=== PATIENT | male | born 1995 | race Hispanic/Latino ===

== ENCOUNTER 2017-11-19 07:35 | Emergency (ER) | payer OTHER ==
[2017-11-19 07:41] VITALS: BMI 23.6
[2017-11-19] MEDS ORDERED: Sodium Chloride 0.9% 1,000 ML IV STA (09:17)
[2017-11-19 09:54] LABS: BASO % 0.5 % (0.0-2.0); EOS # 0.2 K/uL (0.0-0.7); EOS % 3.1 % (0.0-4.0); HEMOGLOBIN 15.1 g/dL (12.0-18.0); LYMPH # 1.5 K/uL (1.0-4.3); LYMPH % 18.7 % (20.0-40.0); MEAN CELL VOLUME 81.7 fl (80.0-94.0); MEAN CORPUSCULAR HEMOGLOBIN 27.6 pg (27.0-31.0); MEAN CORPUSCULAR HGB CONC 33.8 g/dL (33.0-37.0); MEAN PLATELET VOLUME 8.5 fl (7.2-11.7); MONO # 0.8 K/uL (0.0-0.8); NEUT # 5.3 K/uL (1.8-7.0); NEUT % 67.7 % (50.0-75.0); NRBC % 0.1 % (0.0-0.0); RBC 5.48 Mil/uL (4.40-5.90); RED CELL DISTRIBUTION WIDTH 13.1 % (11.5-14.5); WHITE BLOOD COUNT 7.9 K/uL (4.8-10.8)
[2017-11-19 10:06] LABS: ALB/GLOB RATIO 1.4 (1.0-2.1); ALBUMIN 4.4 g/dL (3.5-5.0); ALT/SGPT 39 U/L (21-72); AST/SGOT 31 U/L (17-59); BLOOD UREA NITROGEN 16 mg/dl (9-20); CALCIUM 9.7 mg/dL (8.4-10.2); GFR AFRICAN-AMERICAN > 60; GFR NON-AFRICAN AMERICAN > 60; LIPASE 41 U/L (23-300)
--- NOTE | 2017-11-19 11:00 | ED PDOC ---
HPI: Abdomen Time Seen by Provider: 11/19/17 09:08 Chief Complaint (Nursing): Abdominal Pain Chief Complaint (Provider): Abdominal Pain History Per: Patient History/Exam Limitations: no limitations Onset/Duration Of Symptoms: Days (x 1), Intermittent Episodes Additional Complaint(s): 22 year old male presents to the ED c/o epigastric pain in intermittent episodes , onset yesterday. Pain is non radiating nor related to food. Reports it comes and goes for a few minutes at a time. Intermittent nausea occurs as a result of the pain. Denies vomiting, diarrhea, fever and chest pain. PMD: Dr. Waddell Past Medical History Reviewed: Historical Data, Nursing Documentation, Vital Signs Vital Signs: Last Vital Signs Temp 98.3 F 11/19/17 15:17 Pulse 61 11/19/17 15:17 Resp 18 11/19/17 15:17 BP 110/51 L 11/19/17 15:17 Pulse Ox 100 11/19/17 15:33 - Medical History PMH: No Chronic Diseases - Surgical History Surgical History: No Surg Hx - Family History Family History: States: No Known Family Hx - Social History Current smoker - smoking cessation education provided: No Alcohol: Occasional Drugs: Denies - Home Medications Home Medications: Ambulatory Orders Medication Instructions Recorded Esomeprazole Magnesium [Nexium] 20 mg PO DAILY #30 capsule. 11/19/17 Famotidine [Pepcid] 20 mg PO DAILY #14 tab 11/19/17 - Allergies Allergies/Adverse Reactions: Allergies Allergy/AdvReac Type Severity Reaction Status Date / Time No Known Allergies Allergy Verified 11/19/17 09:18 Review of Systems ROS Statement: Except As Marked, All Systems Reviewed And Found Negative (as per HPI otherwise negative) Constitutional: Negative for: Fever Cardiovascular: Negative for: Chest Pain Gastrointestinal: Positive for: Nausea (intermittent), Abdominal Pain ( intermittent). Negative for: Vomiting, Diarrhea Physical Exam - Reviewed Nursing Documentation Reviewed: Yes Vital Signs Reviewed: Yes - Physical Exam Appears: Positive for: Non-toxic, No Acute Distress Head Exam: Positive for: ATRAUMATIC, NORMOCEPHALIC Skin: Positive for: Normal Color, Warm, Dry Eye Exam: Positive for: EOMI, Normal appearance, PERRL Neck: Positive for: Normal, Painless ROM, Supple Cardiovascular/Chest: Positive for: Regular Rate, Rhythm Respiratory: Positive for: CNT, Normal Breath Sounds Gastrointestinal/Abdominal: Positive for: Soft, Tenderness (mild epigastric) Neurologic/Psych: Positive for: Alert, Oriented - Laboratory Results Result Diagrams: 11/19/17 09:35 11/19/17 09:35 - ECG O2 Sat by Pulse Oximetry: 100 (RA) Pulse Ox Interpretation: Normal - Progress Re-evaluation Time: 15:35 Condition: Re-examined, Improved Medical Decision Making Medical Decision Making: Time: 09:16 Impression: abdominal pain Differential diagnoses included but are not limited to gallbladder diseases, pancreatitis, gastritis. Other diagnoses considered by not listed. Initial Plan: --CMP --Lipase --CBC --Normal saline IV 1,000 mls/hr --Pepcid 20 mg IVP --Bentyl 10 mg PO --Abdomen US --Abdomen Pelvis CT Abdomen US FINDINGS: LIVER: The liver measures approximately 14.3 cm in length. Normal echogenicity of the liver parenchyma. No obvious masses or collections seen on images presented. . No intrahepatic bile duct dilatation. No evidence of abdominal ascites. GALLBLADDER: Gallbladder is physiologically distended. No evidence of intraluminal gallbladder calculi. No pericholecystic fluid collections or sonographic Coreas sign. COMMON BILE DUCT: CBD measures approximately 2.6 mm. No stones. No dilatation. PANCREAS: Unremarkable as visualized. No mass. No ductal dilatation. RIGHT KIDNEY: Right kidney measures approximately 11.1 x 6.0 x 4.4 cm in length. Normal echogenicity. No calculus, mass, or hydronephrosis. AORTA: No aneurysmal dilatation. IVC: Unremarkable. OTHER FINDINGS: None . IMPRESSION: Unremarkable limited right upper quadrant ultrasound. Time: 15:[address] FINDINGS: LOWER THORAX: Unremarkable. LIVER: Mildly diminished attenuation throughout the liver suggesting hepatic steatosis without focal mass or biliary tree dilatation appreciated in the liver. GALLBLADDER AND BILE DUCTS: Unremarkable. PANCREAS: Unremarkable. No gross lesion or ductal dilatation. SPLEEN: Unremarkable. ADRENALS: Unremarkable. No mass. KIDNEYS AND URETERS: Unremarkable. No hydronephrosis. No solid mass. VASCULATURE: Unremarkable. No aortic aneurysm. BOWEL: The stomach is collapsed without oral contrast present. Limited on gas is seen retained within the mid fundus. Thickening of the wall of the cardiac portion is difficult to exclude and therefore etiologies such is gastritis or even a mural lesion would be very difficult to exclude. Small and large bowel loops appear normal in overall caliber with no obstructive pattern appreciated. Limited retained fecal material seen throughout various large-bowel segments, predominantly distal large bowel. APPENDIX: Normal appendix. PERITONEUM: Unremarkable. No free fluid. No free air. LYMPH NODES: Unremarkable. No enlarged lymph nodes. BLADDER: A distended but thin/smooth walled urinary bladder is identified. REPRODUCTIVE: Unremarkable. BONES: No acute fracture. OTHER FINDINGS: None. IMPRESSION: The stomach is collapsed and thickening of the cardiac santiago is difficult to exclude and therefore gastritis or even an underlying mural lesion is not excluded. No definite additional potential acute findings in this abdomen and pelvis CT examination the lack of oral contrast limits interpretation somewhat. Hepatic steatosis. Scribe Attestation: Documented by Zhane Abel, acting as a scribe for Pilar Gambino MD Provider Scribe Attestation: All medical record entries made by the Scribe were at my direction and personally dictated by me. I have reviewed the chart and agree that the record accurately reflects my personal performance of the history, physical exam, medical decision making, and the department course for this patient. I have also personally directed, reviewed, and agree with the discharge instructions and disposition. Disposition - Clinical Impression Clinical Impression: Abdominal pain - Patient ED Disposition Is Patient to be Admitted: No Doctor Will See Patient In The: Office Counseled Patient/Family Regarding: Studies Performed, Diagnosis, Need For Followup - Disposition Referrals: [facility] [Outside] Jesus HUDSON,MD Miguel [Medical Doctor] - Disposition: Routine/Home Disposition Time: 15:35 Condition: GOOD Additional Instructions: Return for worsening. Follow up with your PCP in 2-3 days. Prescriptions: Esomeprazole Magnesium [Nexium] 20 mg PO DAILY #30 capsule. Famotidine [Pepcid] 20 mg PO DAILY #14 tab Instructions: Gastritis (ED)
[2017-11-19] MEDS ORDERED: Iohexol 300 100 ML IJ ONE (14:08)
[2017-11-19] MEDS ORDERED: Sodium Chloride 0.9% 50 ML IV ONE (14:08)
[2017-11-19 15:18] VITALS: BP 110/51; PULSE 61; RESP 18; TEMP 98.3
--- NOTE | 2017-11-19 15:18 | CT ---
PROCEDURE: CT Abdomen and Pelvis with contrast HISTORY: epigastric pain COMPARISON: Limited abdomen ultrasound exam 11/19/2017. TECHNIQUE: Following the intravenous administration of iodinated contrast material, a CT examination of the abdomen and pelvis performed from the domes of the diaphragms to the symphysis pubis with reformatted datasets provided not only axial but also sagittal and coronal planes. Oral contrast was not administered as per referring physician request. Contrast dose: Omnipaque 300, 96 cc Radiation dose: Total exam DLP = 639.70 mGy-cm. This CT exam was performed using one or more of the following dose reduction techniques: Automated exposure control, adjustment of the mA and/or kV according to patient size, and/or use of iterative reconstruction technique. FINDINGS: LOWER THORAX: Unremarkable. LIVER: Mildly diminished attenuation throughout the liver suggesting hepatic steatosis without focal mass or biliary tree dilatation appreciated in the liver. GALLBLADDER AND BILE DUCTS: Unremarkable. PANCREAS: Unremarkable. No gross lesion or ductal dilatation. SPLEEN: Unremarkable. ADRENALS: Unremarkable. No mass. KIDNEYS AND URETERS: Unremarkable. No hydronephrosis. No solid mass. VASCULATURE: Unremarkable. No aortic aneurysm. BOWEL: The stomach is collapsed without oral contrast present. Limited on gas is seen retained within the mid fundus. Thickening of the wall of the cardiac portion is difficult to exclude and therefore etiologies such is gastritis or even a mural lesion would be very difficult to exclude. Small and large bowel loops appear normal in overall caliber with no obstructive pattern appreciated. Limited retained fecal material seen throughout various large-bowel segments, predominantly distal large bowel. APPENDIX: Normal appendix. PERITONEUM: Unremarkable. No free fluid. No free air. LYMPH NODES: Unremarkable. No enlarged lymph nodes. BLADDER: A distended but thin/smooth walled urinary bladder is identified. REPRODUCTIVE: Unremarkable. BONES: No acute fracture. OTHER FINDINGS: None. IMPRESSION: The stomach is collapsed and thickening of the cardiac santiago is difficult to exclude and therefore gastritis or even an underlying mural lesion is not excluded. No definite additional potential acute findings in this abdomen and pelvis CT examination the lack of oral contrast limits interpretation somewhat. Hepatic steatosis.
[2017-11-19 15:33] VITALS: O2SAT 100
== END 2017-11-19 15:58 | disposition home or self-care (01) ==
LOC: H.ER 07:35
DX: R10.13 Epigastric pain (principal)
CPT/HCPCS: 74177; 76705; 80053; 83690; 85025; 96374; 99283; J7040; Q9967